=== PATIENT | female | born 1990 | race Caucasian/White ===

== ENCOUNTER 2023-11-08 18:36 | Emergency (ER) | payer MEDICAID ==
[~2023-11-08] VITALS: Ht 160 cm; Wt 51.7 kg
[2023-11-08 19:20] VITALS: BP_SYST 102; PULSE 66; RESP 18; TEMP 98; O2SAT 99
== END 2023-11-08 21:45 | disposition home or self-care (01) ==
LOC: SED 18:36
DX: J06.9 Acute upper respiratory infection, unspecified (principal); Z20.822 Contact with and (suspected) exposure to COVID-19
CPT/HCPCS: 36415; 99283